=== PATIENT | female | born 1970 | race Caucasian/White ===

== ENCOUNTER 2022-04-14 10:07 | Day surgery (SDC) | payer OTHER ==
[~2022-04-14] VITALS: Ht 170.2 cm; Wt 81.6 kg
[2022-04-14] MEDS ORDERED: diphenhydrAMINE 50 MG/ML VIAL ONE (10:52)
[2022-04-14] MEDS ORDERED: fentaNYL citrate 0.05 MG/ML VIAL ONE (10:52)
[2022-04-14] MEDS ORDERED: LIDOCAINE 2% 100 MG/5 ML UJET TP ONE (10:53)
[2022-04-14] MEDS ORDERED: MIDAZOLAM 5 MG/5 ML VIAL ONE (10:53)
[2022-04-14] MEDS ORDERED: fentaNYL citrate 0.05 MG/ML VIAL IVP ONE (12:45)
[2022-04-14] MEDS ORDERED: diphenhydrAMINE 50 MG/ML VIAL IVP ONE (12:45)
[2022-04-14] MEDS ORDERED: MIDAZOLAM 5 MG/5 ML VIAL IV ONE (12:45)
== END 2022-04-14 12:45 | disposition home or self-care (01) ==
LOC: MMU 10:07 → MOR 10:07
PROVIDERS: ATTEND Internal Medicine Gastroenterology
DX: K62.5 Hemorrhage of anus and rectum (principal); K57.30 Diverticulosis of large intestine without perforation or abscess without bleeding; K64.8 Other hemorrhoids; Z86.010 Personal history of colon polyps; I10 Essential (primary) hypertension; E78.00 Pure hypercholesterolemia, unspecified; Z80.0 Family history of malignant neoplasm of digestive organs; Z88.0 Allergy status to penicillin; Z79.899 Other long term (current) drug therapy; Z20.822 Contact with and (suspected) exposure to COVID-19
CPT/HCPCS: 45378; 81025; 87426; J1200; J2250; J3010